=== PATIENT | female | born 1990 | race African-American/Black ===

== ENCOUNTER → 2017-09-22 15:40 | Observation (INO) ==
[2017-09-22 13:20] LABS: Bilirubin,Urine Negative (Negative); Blood,Urine Negative (Negative); Clarity,Urine Cloudy (Clear); Color,Urine Yellow (Yellow); Glucose,Urine (UA) Normal (Normal); Ketones,Urine Negative (Negative); Leukocyte Esterase,Urine Trace (Negative); Nitrite,Urine Negative (Negative); Protein,Urine Negative (Neg-Trace); Specific Gravity,Urine 1.014 (1.010-1.025); Urobilinogen,Urine Normal (Normal)
[2017-09-22 13:22] LABS: Bacteria,Urine None Seen per hpf (None-Few); Hyaline Casts,Urine None Seen per lpf (None-Few); RBC,Urine 0-3 per hpf (0-3); Squamous Epithelial Cell,Urine Many per lpf (None-Few)
[2017-09-22 14:19] LABS: Amphetamine Screen,Urine Negative ng/mL (Cutoff=1000); Barbiturate Screen,Urine Negative ng/mL (Cutoff=200); Benzodiazepines Screen,Urine Negative ng/mL (Cutoff=200); Cannabinoid Screen,Urine Negative ng/mL (Cutoff = 50); Cocaine Screen,Urine Negative ng/mL (Cutoff= 300); Opiate Screen,Urine Negative ng/mL (Cutoff=300); Phencyclidine Screen,Urine Negative ng/mL (Cutoff=25)
--- NOTE | 2017-09-22 18:16 | OB/GYN Progress Note ---
Date of Encounter: 09/22/17 Time of Encounter: 15:30 - Assessment and Plan (1) 33 weeks gestation of Status: Acute (2) Pelvic pressure in Status: Acute UA negative, rare contractions seen on monitor. No change on serial cervical exams. Discharged home with strict when to return to triage for labor precautions. Patient verbalizes understanding. Plan of care discussed with Dr. Li Subjective - Subjective Interval history: 33+3 weeks gestation cents to triage with complaints of pelvic pressure. Patient states she has been having pelvic pressure sometimes sharp pains shooting down into her lower pelvic region over the last 24 hours. Patient states she has not felt any uterine contractions, other than the occasional pressure and sharp pain Patient denies dysuria, urgency or frequency with urination. Patient reports good movement, denies vaginal bleeding or leaking of fluid. No pre-term delivery history. Antepartum ROS: movement normal, no loss of fluid, no vaginal bleeding, no contractions Objective - Vital Signs Vital Signs: Vital Signs Temp Pulse Resp 09/22/17 12:13 97.4 F L 85 14 Intake and Output 09/22/17 09/22/17 09/22/17 07:59 15:59 23:59 Other: Weight 81.5 kg Patient Weight 09/22/17 23:59 Weight 81.5 kg - Exam FHR: auscultation normal FHR comments: Baseline 135 Abdomen: Present: soft, gravid Cervical dilation: 50/-3 - Labs Labs: Abnormal lab results Urine Clarity Cloudy (Clear) A 09/22/17 12:35 Ur Leukocyte Esterase Trace (Negative) H 09/22/17 12:35 Urine Microscopic WBC 5-15 per hpf (0-3) H 09/22/17 12:35 Ur Squamous Epith Cells Many per lpf (None-Few) H 09/22/17 12:35 Ur Culture Indicated? NO. (NO) A 09/22/17 12:35
== END | disposition home or self-care (01) ==
LOC: 1NENULAB
PROVIDERS: ADMIT Advanced Practice Midwife; ATTEND Advanced Practice Midwife

== ENCOUNTER 2017-10-23 01:55 | Observation (INO) ==
[2017-10-23 02:29] LABS: Amphetamine Screen,Urine Negative ng/mL (Cutoff=1000); Barbiturate Screen,Urine Negative ng/mL (Cutoff=200); Benzodiazepines Screen,Urine Negative ng/mL (Cutoff=200); Cannabinoid Screen,Urine Negative ng/mL (Cutoff = 50); Cocaine Screen,Urine Negative ng/mL (Cutoff= 300); Opiate Screen,Urine Negative ng/mL (Cutoff=300); Phencyclidine Screen,Urine Negative ng/mL (Cutoff=25)
--- NOTE | 2017-10-23 03:25 | OB/GYN History & Physical ---
Date of Encounter: 10/23/17 Time of Encounter: 03:21 Assessment and Plan (1) 37 weeks gestation of Current visit: No Status: Acute admitted for observation Continue labor observation: If no cervical change will discharge home. History of Present Illness Chief complaint: leaking fluid HPI: Ms. Franco is a 27 year old female @ 37w6d presents to labor and delivery with complaints of a small trickle of fluid around 0030. Patient denies any VB or regular contractions. Patient reports +FM. Denies any urinary symptoms, headache, visual disturbances or epigastric pain. Blood type: A+ Rubella: Immune Hep B: non-reactive GBS: Negative Past Med Surg Social Fam HX - Past Medical History Source: patient Medical history: asthma Psychiatric history: anxiety, depression - Past Surgical History Surgical History: no surgical history Additional surgical history: wisdom teeth - Social History Smoking Status: Never smoker Smokeless Tobacco Status: No Alcohol use: none Drug use: none Current living situation: Home - Independent Activity Level: Independent ambulation Recent Out of Country Travel Within the Last 8 Weeks: No Exposure or Possible Exposure to Illness During Travel: No - Family History Mother Adopted: No Family Member Ethnicity: Non- Living Status: Still Living Hx Family Cardiac Disorders: Yes (HTN) Hx Family Respiratory Disorders: Yes (Asthma) Hx Family Cancer: No Hx Family GI Disorders: Yes (Spastic Bowel syndrome, IBS) Hx Family Genitourinary Disorders: No Hx Family Endocrine Disorder: Yes (DM) Hx Family Musculoskeletal Disorders: No Hx Family Neuromuscular Disorders: No Hx Family Neurologic Disorders: No Hx Family HEENT Disorders: No Hx Family Autoimmune Disorders: No Hx Family Reproductive Disorders: No Hx Family Psychosocial Disorders: Yes (Anxiety and depression) Hx Family Medical Disorders: No Obstetrical History - Pregnancies : 3 Para: 2 Term: 0 : 0 Ab's: 0 Livin Medications and Allergies Ferrous Sulfate 325 mg PO BID 09/22/17 [History] Folic Acid 1 / PO DAILY 09/22/17 [History] Magnesium 1 / PO DAILY 09/22/17 [History] Vitamin Tablet 1 / PO DAILY 09/22/17 [History] 3 Allergy/AdvReac Type Severity Reaction Status Date / Time clindamycin Allergy Anaphylaxis Verified 09/25/17 14:52 Review of System OB - Constitutional Constitutional ROS IM: no fever(s), no headache(s) - Cardiovascular Cardiovascular: no chest pain, no palpitations, no syncope - Respiratory Respiratory: no cough - Gastrointestinal Gastrointestinal: no abdominal pain, no cramping, no diarrhea, no heartburn, no nausea, no vomiting - Genitourinary Genitourinary: vaginal discharge (per HPI), no dysuria, no flank pain, no urinary frequency Exam - Constitutional Constitutional: well developed, well nourished, no acute distress, average body habitus - HEENT HEENT: Normocephaly, Mucus Membranes Moist - Neck Neck exam: full ROM, supple - Lungs Respiratory exam: CTAB - Cardiovascular Cardiovascular exam: RRR, +S1, +S2 - Abdomen Abdomen: Present: bowel sounds normal, gravid, non tender - Extremities Extremities exam: full ROM, normal inspection Deep Tendon Reflex Grade: 2+ Normal - Vagina Vagina: Present: normal moisture - Cervix Dilation: 2 Effacement: 80 Station: -1 - Uterus Uterus exam: Present: normal size, normal contour - Anus/Rectum Anus/Rectum: Present: normal perianal skin - Comments Comments: Speculum: exam Negative pooling and Negative FERN Nitrazine negative per RN. Results All other labs normal. - VTE Reasons for not Prescribing Prophylaxis: Treatment not Indicated - Low risk for VTE
== END 2017-10-23 04:49 | disposition home or self-care (01) ==
LOC: 1NENULAB
PROVIDERS: ADMIT Advanced Practice Midwife; ATTEND Advanced Practice Midwife

== ENCOUNTER 2017-10-30 00:27 | Inpatient (IN) ==
[2017-10-30] MEDS ORDERED: *HR* Nalbuphine 10 MG/ML AMPUL IVP PRN (00:40)
[2017-10-30] MEDS ORDERED: Famotidine 20 MG/2 ML VIAL IVP PRN (00:40)
[2017-10-30] MEDS ORDERED: Metoclopramide 10 MG/2 ML VIAL IVP PRN (00:40)
[2017-10-30] MEDS ORDERED: Ringers Solution, Lactated 1,000 ML IVC SCH (00:45)
[2017-10-30 01:05] LABS: Basophils % 0.2 %; Eosinophils # 0.1 K/mcL (0.0-0.6); Eosinophils % 0.8 %; Hematocrit 32.6 % (35.3-44.9); Hemoglobin 10.8 g/dL (11.5-15.4); Lymphocytes # 2.1 K/mcL (0.6-4.6); Lymphocytes % 18.5 %; Mean Corpuscular HGB Conc 33.1 g/dL (31.6-35.5); Mean Corpuscular Hemoglobin 25.5 pg (28.0-33.3); Mean Corpuscular Volume 77.1 fL (83.0-100.0); Mean Platelet Volume 9.6 fL (9.4-12.4); Monocytes # 0.8 K/mcL (0.0-1.3); Monocytes % 6.7 %; Neutrophils # 8.3 K/mcL (1.6-8.9); Nucleated Red Blood Cells 0.2 /100 WBC (0); Platelet Count 181 K/mcL (140-400); Red Blood Count 4.23 M/mcL (3.82-4.97); Red Cell Distribution Width 17.5 % (11.5-14.5); Segmented Neutrophils % 72.8 %
[2017-10-30] MEDS ORDERED: Acetaminophen 325 MG TABLET PO ONE (01:57)
--- NOTE | 2017-10-30 02:35 | OB/GYN History & Physical ---
Date of Encounter: 10/30/17 Time of Encounter: 02:32 Assessment and Plan (1) 38 weeks gestation of Current visit: Yes Status: Acute (2) SROM (spontaneous rupture of membranes) Current visit: Yes Status: Acute Admit to labor and delivery GBS negative This patient is saurabh we will do expectant management at this time Dr. Monroe aware of admission Intermittent monitoring Anticipate History of Present Illness Chief complaint: SROM HPI: Ms. Franco is a 27 year old female 38+6 weeks gestation presents to triage with complaints of spontaneous rupture membranes. Patient reports good movement, and occasional contractions denies any vaginal bleeding. Uncomplicated course. care with Dr. Monroe. Patient does have asthma uses inhaler approximately weekly Labs: A+, rubella and varicella immune, GBS negative, all other serologies negative Past Med Surg Social Fam HX - Past Medical History Medical history: asthma Psychiatric history: anxiety, depression - Past Surgical History Surgical History: no surgical history Additional surgical history: wisdom teeth - Social History Smoking Status: Never smoker Smokeless Tobacco Status: No Alcohol use: none Drug use: none - Family History Mother Adopted: No Family Member Ethnicity: Non- Living Status: Still Living Hx Family Cardiac Disorders: Yes (HTN) Hx Family Respiratory Disorders: Yes (Asthma) Hx Family Cancer: No Hx Family GI Disorders: Yes (Spastic Bowel syndrome, IBS) Hx Family Endocrine Disorder: Yes (DM) Hx Family Neuromuscular Disorders: No Hx Family Neurologic Disorders: No Hx Family HEENT Disorders: No Hx Family Autoimmune Disorders: No Hx Family Medical Disorders: Yes (HTN/DB) Obstetrical History - Pregnancies : 3 Para: 2 Term: 2 : 0 Ab's: 0 Livin Medications and Allergies Ferrous Sulfate 325 mg PO BID 09/22/17 [History] Folic Acid 1 / PO DAILY 09/22/17 [History] Magnesium 1 / PO DAILY 09/22/17 [History] Vitamin Tablet 1 / PO DAILY 09/22/17 [History] 3 Allergy/AdvReac Type Severity Reaction Status Date / Time clindamycin Allergy Anaphylaxis Verified 09/25/17 14:52 Exam - Constitutional Constitutional: well developed, well nourished, no acute distress, average body habitus - Neck Neck exam: full ROM - Lungs Respiratory exam: CTAB - Cardiovascular Cardiovascular exam: RRR - Abdomen Abdomen: Present: bowel sounds normal, gravid, non tender - Extremities Extremities exam: normal capillary refill, normal inspection - Vulva Vulva: bilateral: normal - Vagina Vagina: Present: normal moisture - Cervix Dilation: 3 (PER RN) Results Result Diagrams: 10/30/17 00:47 Abnormal lab results WBC 11.3 K/mcL (4.3-11.1) H 10/30/17 00:47 Hgb 10.8 g/dL (11.5-15.4) L 10/30/17 00:47 Hct 32.6 % (35.3-44.9) L 10/30/17 00:47 MCV 77.1 fL (83.0-100.0) L 10/30/17 00:47 MCH 25.5 pg (28.0-33.3) L 10/30/17 00:47 RDW 17.5 % (11.5-14.5) H 10/30/17 00:47 Nucleated RBCs/100 WBC 0.2 /100 WBC (0) H 10/30/17 00:47 All other labs normal. - VTE Reasons for not Prescribing Prophylaxis: Treatment not Indicated - Low risk for VTE
[2017-10-30] MEDS ORDERED: miSOPROStol 25 MCG TABLET PO PRN (03:57)
[2017-10-30] MEDS ORDERED: Lidocaine -MPF 2% 5 ML VIAL ONE (05:29)
[2017-10-30] MEDS ORDERED: Epidural Premix (fent/bupiv) 110 ML EP ONE (05:33)
[2017-10-30] MEDS ORDERED: EPHEDrine 50 MG/ML VIAL IVP PRN (06:07)
--- NOTE | 2017-10-30 06:07 | Anesthesia Evaluation PreOp ---
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 Significant HX Other Medical History: Denies Any Significant HX Anesthesia History: No Prior Anesthetic Complications, Past Anesthesia Alcohol Use: none Drug use: none Medications and Allergies Ferrous Sulfate 325 mg PO BID 09/22/17 [History] Folic Acid 1 / PO DAILY 09/22/17 [History] Magnesium 1 / PO DAILY 09/22/17 [History] Vitamin Tablet 1 / PO DAILY 09/22/17 [History] 3 Allergy/AdvReac Type Severity Reaction Status Date / Time clindamycin Allergy Anaphylaxis Verified 09/25/17 14:52 Anesthesia Results - Labs 10/30/17 00:47 Anesthesia Exam - HEENT Pupil (Motor): Pupils equal Mallampati: II Teeth: Normal Oral Opening: Greater than 3 - HEATING WORKER LOC: Oriented HEATING WORKER Motor: Normal RUE, Normal LUE, Normal RLE, Normal LLE, Normal Face HEATING WORKER Sensory: Normal: RUE, LUE, RLE, LLE, Face - Cardiac Rhythm: Regular Murmur: None - Pulmonary Breath Sounds: bilateral Clear Respiratory Effort: Symmetrical Anesthesia Assess/Plan ASA Score: 2 Modified Leeper Scale for Level of Consciousness: Cooperative, oriented, and tranquil Anesthetic Plan: General, Regional Monitoring Plan: Standard Monitors Recovery Plan: PACU
--- NOTE | 2017-10-30 06:11 | Anesthesia Procedures ---
Date of Encounter: 10/30/17 Time of Encounter: 06:02 Procedures: Anesthesia - Epidural/Spinal Patient ID/Chart reviewed: Yes Patient examined: Yes OB Eval: : 3 OB Eval: Hx Para: 2 OB Eval: Contractions: Non-stressed pattern Consent Obtained: Yes Supplemental Oxygen: None/Room Air Site Prep: Aseptic Technique, Sterile prep and drape, 0.5% Chlorhexidine/Alcohol Patient position: upright Local Anesthetic: Lidocaine 1% Amount of Local Anesthetic used: 2 Touhy Needle Gauge: 18 Touhy Needle Depth (cm): 6 Catheter Depth at Skin (cm): 10 Test Dose (1.5% Lido + Epi): Volume given (mls): 3 Test Dose Result: Negative Loading Dose: Other: 12ml from solution Loading Dose Administered: Thru Catheter Infusion Med: 0.125% Bupivacaine w/ 2 mcg/ml Fentanyl Infusion Rate (mls/hr): [address]: Tegaderm, Tape Interspace Used: L3-L4 Loss of Resistance (BRISA): Yes (saline) Blood: No CSF: No Paresthesia: No Procedure: vss though out procedure, FHR stable per RN's
[2017-10-30] MEDS ORDERED: Epidural Premix (fent/bupiv) 110 ML EP SCH (06:15)
--- NOTE | 2017-10-30 06:57 | OB Labor Progress Note ---
Date of Encounter: 10/30/17 Time of Encounter: 06:56 Labor Progress Note - Subjective Subjective: Comfortable with epidural - Cervix Cervix: 7 per RN - Heart Tones Heart Tones: 125/moderate/+accels/-decels - [place]: 5-7 - Plan Plan: Continue current management plan Frequent repositioning Anticipate
[2017-10-30] MEDS ORDERED: Oxytocin 20 units/ LR 1000 mL 20 UNIT/1,000 ML BAG IVC ONE (08:24)
--- NOTE | 2017-10-30 09:09 | OB/GYN Procedure Note ---
Delivery - Delivery Date: 10/30/17 Provider: Martha Monroe Intrapartum events: none Delivery induction: none Delivery monitor: external FHT, external uterine Anesthesia: epidural Quantitated Blood Loss: 300 - (s) Infant A Delivery Date: 10/30/17 Infant Delivery Time: 08:25 Presentation: vertex Position: OLIVER Route of delivery: Gender: Male Viability: Viable Pounds: 8 Ounces: 7 Weight Gram: 3.815 kg at 1 minute: 8 at 5 mins: 8 Shoulder Dystocia: not encountered Placenta: spontaneous Cord: 3 umbilical vessels - Repair Laceration Description: Perineal - 2nd Degree, Labial, Superficial - Complications Delivery complications: uterine atony (Status post 0.2 mg Methergine post placental delivery) Delivery comments: The patient was complete and pushing with epidural anesthesia with spontaneous vaginal delivery of a vigorous male in the OLIVER position, weighing 8 lbs. 7 oz. with Apgars of 8 at 1 minute and 8 at 5 minutes. was placed on the maternal abdomen and given to the nurse caring team. The cord was clamped and cut after pulsations ceased. The placenta was delivered spontaneous and intact, three-vessel cord noted. There was a second-degree midline laceration which was repaired with 3-0 Monocryl in usual fashion. There were bilateral superficial labial lacerations which were hemostatic and not repaired. There were bilateral vaginal lacerations which were repaired with 3-0 Monocryl in a running locking fashion. Uterine atony was noted and Methergine was given along with uterine massage. Estimated blood loss 300 mL's. Complications none. Both mother and were recovering in stable condition in the LDR. - Disposition Mom disposition: stable in LDR [place] disposition: stable in LDR
[2017-10-30] MEDS ORDERED: Oxytocin 20 units/ LR 1000 mL 20 UNIT/1,000 ML BAG IVC SCH (09:16)
[2017-10-30] MEDS ORDERED: Measles/Mumps/Rubella Vacc 0.5 ML VIAL SQ PRN (09:16)
[2017-10-30] MEDS ORDERED: Acetaminophen 325 MG TABLET PO PRN (09:16)
[2017-10-30] MEDS: Ibuprofen 600 MG TABLET PO SCH ×2 (09:45→23:06)
[2017-10-30] MEDS: *HR* HYDROcodone/Acet 5/325 mg TABLET PO PRN ×2 (10:02→17:26)
[2017-10-30] MEDS: miSOPROStol 100 MCG TABLET PO SCH ×2 (12:40→19:34)
[2017-10-31] MEDS: Ibuprofen 600 MG TABLET PO SCH (06:04)
[2017-10-31] MEDS: miSOPROStol 100 MCG TABLET PO SCH (06:05)
[2017-10-31 06:45] LABS: Basophils % 0.2 %; Eosinophils # 0.1 K/mcL (0.0-0.6); Eosinophils % 0.6 %; Hematocrit 34.2 % (35.3-44.9); Hemoglobin 11.1 g/dL (11.5-15.4); Immature Granulocytes % 0.8 % (0-4); Lymphocytes % 16.1 %; Mean Corpuscular HGB Conc 32.5 g/dL (31.6-35.5); Mean Corpuscular Hemoglobin 24.9 pg (28.0-33.3); Mean Corpuscular Volume 76.7 fL (83.0-100.0); Mean Platelet Volume 11.1 fL (9.4-12.4); Monocytes # 0.7 K/mcL (0.0-1.3); Monocytes % 5.7 %; Neutrophils # 9.7 K/mcL (1.6-8.9); Platelet Count 211 K/mcL (140-400); Red Blood Count 4.46 M/mcL (3.82-4.97); Red Cell Distribution Width 17.9 % (11.5-14.5); Segmented Neutrophils % 76.6 %
[2017-10-31 08:07] VITALS: BP 119/84
[2017-10-31] MEDS: *HR* HYDROcodone/Acet 5/325 mg TABLET PO PRN (08:10)
[2017-10-31] MEDS ORDERED: Prenatal Vit/FA 1 EACH TABLET PO SCH (09:00)
--- NOTE | 2017-10-31 10:25 | Discharge Summary ---
Date of Encounter: 10/31/17 Time of Encounter: 10:23 - Discharge Diagnosis (1) Vaginal delivery Priority: Primary Status: Acute Comments: Pain well controlled with by mouth pain meds Tolerating regular diet Ambulating independently Voiding independently Passing flatus, but no BM yet Lochia light Requesting Depo-Provera today for control Discharge home - Discharge Medications Prescriptions: Docusate [Colace] 100 mg PO BID #30 capsule Ibuprofen [Motrin] 600 mg PO Q6H #30 tablet Home Medications: Vitamin Tablet 1 / PO DAILY 09/22/17 [History] Acetaminophen [Tylenol] 650 mg PO Q6HR PRN tablet 10/31/17 [Rx] Docusate [Colace] 100 mg PO BID #30 capsule 10/31/17 [Rx] Ibuprofen [Motrin] 600 mg PO Q6H #30 tablet 10/31/17 [Rx] Allergies/Adverse Reactions: 3 Allergy/AdvReac Type Severity Reaction Status Date / Time clindamycin Allergy Anaphylaxis Verified 09/25/17 14:52 Data Procedures and tests throughout hospitalization: Laboratory Tests 10/30/17 10/31/17 00:47 06:17 WBC 11.3 H 12.7 H RBC 4.23 4.46 Hgb 10.8 L 11.1 L Hct 32.6 L 34.2 L MCV 77.1 L 76.7 L MCH 25.5 L 24.9 L MCHC 33.1 32.5 RDW 17.5 H 17.9 H Plt Count 181 211 MPV 9.6 11.1 Immature Gran % 1.0 0.8 Seg Neutrophils % 72.8 76.6 Lymphocytes % 18.5 16.1 Monocytes % 6.7 5.7 Eosinophils % 0.8 0.6 Basophils % 0.2 0.2 Neutrophils # 8.3 9.7 H Lymphocytes # 2.1 2.0 Monocytes # 0.8 0.7 Eosinophils # 0.1 0.1 Basophils # 0.0 0.0 Nucleated RBCs/100 WBC 0.2 H Labs on day of discharge: Labs from last 24 hours 10/31/17 06:17 WBC 12.7 H RBC 4.46 Hgb 11.1 L Hct 34.2 L MCV 76.7 L MCH 24.9 L MCHC 32.5 RDW 17.9 H Plt Count 211 MPV 11.1 Immature Gran % 0.8 Seg Neutrophils % 76.6 Lymphocytes % 16.1 Monocytes % 5.7 Eosinophils % 0.6 Basophils % 0.2 Neutrophils # 9.7 H Lymphocytes # 2.0 Monocytes # 0.7 Eosinophils # 0.1 Basophils # 0.0 Date of admission: 10/30/17 00:53 Consults: 10/30/17 09:16 Consult to Remote Sensing Analyst [CONS] Routine Comment: Vaginal delivery, consult needed Discharging clinician: Frida Pearson Anticipated date of discharge: 10/31/17 - Patient Status Disposition: Home, Self-Care Condition: Good Functional capacity at discharge: independent ambulation Overall status at discharge: patient is progressing back to baseline - Discharge Instructions Follow Up With: Martha Monroe MD [Partnered Physician] - - Diet and Activity Activity: increase activity as tolerated Diet: regular diet Hospital Course Reason for admission: IUP at term Delivery: Episiotomy: none Laceration: 2nd degree Other procedures: none complications: none Discharge diagnosis: IUP at term delivered baby: male Time Attestation: Total time spent providing and/or coordinating discharge services: Time Spent: Less than 30 minutes Exam - Constitutional Vitals: Temp Pulse Resp BP Pulse Ox 98.3 F 73 16 119/84 99 10/31/17 08:05 10/31/17 08:05 10/31/17 08:23 10/31/17 08:05 10/31/17 08:05 General appearance IM: A&O X 3 - Respiratory Respiratory exam: Present: CTAB - Cardiovascular Cardiovascular exam IM: Present: RRR, +S1, +S2 - GI/Abdominal GI/Abdominal exam IM: normal bowel sounds, no peritoneal signs - Rectal Rectal exam: deferred - Uterine Tone: Firm Uterus Position: At Umbilicus, Midline - Extremities Exam Extremities exam IM: Present: normal capillary refill, normal inspection, radial pulses palpable and symmetrical - Neurological Exam Neurological exam: alert, CN II-XII intact, normal gait, oriented X3, reflexes normal, no focal deficits, strengths equal and symetr throughout - Psychiatric Additional comments: Patient admits history of depression with previous deliveries. Signs and symptoms reviewed with patient and she verbalizes understanding of when to seek help. - Other Additional findings: Breasts: Soft, nontender. Nipples intact without erythema.
== END 2017-10-31 12:16 | disposition home or self-care (01) | DRG 560 ==
LOC: 1NENULAB → 1NENUOBS 11:53
PROVIDERS: ADMIT Advanced Practice Midwife; ATTEND Advanced Practice Midwife